=== PATIENT | female | born 1945 | race Caucasian/White ===

== ENCOUNTER 2021-12-07 07:25 | Outpatient (CLI) | payer OTHER ==
[~2021-12-07 07:25] MED LIST: DICLOFENAC 100 MG; DIOVAN320 MG; LASIX20 MG PO; OXYBUTYNIN 10 MG; ROSUVASTATIN; TOPROL XL50 M1; XARELTO20 MG; ZEGERID 40 MG1 EACH; ZETIA10 MG
== END 2021-12-07 07:27 | disposition home or self-care (01) ==
LOC: NUCLEAR 07:25
DX: I87.2 Venous insufficiency (chronic) (peripheral) (principal)

== ENCOUNTER 2021-12-09 07:24 | Outpatient (CLI) | payer OTHER | END 2021-12-09 07:26 | disposition home or self-care (01) | LOC: NUCLEAR 07:24 | DX: I73.9 Peripheral vascular disease, unspecified (principal) ==

== ENCOUNTER 2022-01-02 15:06 | Emergency (ER) | payer OTHER ==
[~2022-01-02] VITALS: Ht 149.9 cm; Wt 69.4 kg
== END 2022-01-02 21:36 | disposition home or self-care (01) ==
LOC: ER 15:06
DX: J03.90 Acute tonsillitis, unspecified (principal); Z20.822 Contact with and (suspected) exposure to COVID-19